=== PATIENT | male | born 1995 | race Caucasian/White ===

== ENCOUNTER 2020-08-24 17:44 | Emergency (ER) | payer OTHER ==
[2020-08-24 18:38] VITALS: RESP 16; TEMP 98.9
--- NOTE | 2020-08-24 18:51 | XR ---
EXAMINATION TYPE: XR ribs LT DATE OF EXAM: 08/24/2020 COMPARISON: None HISTORY: Pain left lower ribs with inspiration TECHNIQUE: Two-view left RIBS FINDINGS: No acute fractures are evident. No pneumothorax is evident. IMPRESSION: 1. Normal left ribs.
--- NOTE | 2020-08-24 20:01 | ED ---
Chest Pain HPI - General Chief Complaint: Chest Pain Stated Complaint: rib pain Time Seen by Provider: 08/24/20 19:31 Source: patient Mode of arrival: ambulatory Limitations: no limitations - History of Present Illness Initial Comments: Is a 25-year-old male presents emergency department for left chest wall pain. He states it started yesterday. No inciting factors. He states that it's worse with breathing, coughing, and sneezing. He states that the source with palpation. It does not radiate. No association was of breath, lightheadedness, sweatiness, nausea, vomiting, fevers or chills. The patient is otherwise healthy and has no history of PE or DVT. No recent travel or surgeries or trauma. Denies any drug use or smoking. X-ray the wrist are performed while the patient was in triage and unremarkable. - Related Data Allergies Allergy/AdvReac Type Severity Reaction Status Date / Time No Known Allergies Allergy Verified 08/24/20 18:36 Review of Systems ROS Statement: Those systems with pertinent positive or pertinent negative responses have been documented in the HPI. ROS Other: All systems not noted in ROS Statement are negative. EKG Findings - EKG Comments: EKG Findings:: EKG showing normal sinus rhythm with a rate of 94. No abnormal ST segment changes or T wave gusman. QTC 445. Other intervals normal. No ectopy. Past Medical History Past Medical History: No Reported History History of Any Multi-Drug Resistant Organisms: None Reported Past Surgical History: No Surgical Hx Reported Past Psychological History: No Psychological Hx Reported Smoking Status: Never smoker Past Alcohol Use History: None Reported Past Drug Use History: None Reported General Exam - General Exam Comments Initial Comments: Constitutional: Awake alert Appears comfortable Head: Normocephalic atraumatic Eyes: no conjunctival injection No scleral icterus EOMI Neck: No JVD Supple Heart: Regular rate rhythm normal S1-S2 no murmurs, tenderness to palpation in the left lateral chest wall Lungs: Clear to auscultation bilaterally No wheezing No rales Abdomen: Soft nondistended nontender Extremities: Non edematous DP pulses intact Radial pulses intact Neuro: A&Ox3 No focal neurologic deficits Psych: Appropriate mood and affect Limitations: no limitations Course Vital Signs 08/24/20 08/24/20 18:34 20:02 Temperature 98.9 F Pulse Rate 100 91 Respiratory 16 16 Rate Blood Pressure 117/75 118/74 O2 Sat by Pulse 99 100 Oximetry Chest Pain MDM - MDM Is a 25-year-old male presents emergency room for left chest wall pain. The patient had unremarkable x-rays and EKG. Patient was perk negative. At this time I feel the patient's symptoms are more muscular skeletal in nature. I advised him to take Motrin and to take it easy for the next few days. Follow up with his primary doctor return for any worsening or changing symptoms. All questions answered. Disposition Clinical Impression: Chest pain Disposition: HOME SELF-CARE Condition: Stable Instructions (If sedation given, give patient instructions): Chest Pain (ED) Additional Instructions: Take Motrin. Avoid heavy lifting. If you have worsening pain, get short of breath, or lightheaded please return. Is patient prescribed a controlled substance at d/c from ED?: No Referrals: None,Stated [Primary Care Provider] - 1-2 days
[2020-08-24 20:02] VITALS: BP 118/74; PULSE 91
== END 2020-08-24 20:04 | disposition home or self-care (01) ==
LOC: EC 17:44
DX: R07.89 Other chest pain (principal)
CPT/HCPCS: 93005; 99285